=== PATIENT | male | born 1985 | race Asian ===

== ENCOUNTER 2022-07-08 09:20 | Inpatient (IN) | payer OTHER ==
[~2022-07-08] VITALS: Ht 170.2 cm; Wt 62.5 kg
[2022-07-08 10:01] LABS: Basophils # (auto) 0 10 ^3/uL (0-0.2); Basophils % (auto) 0.5 % (0.0-2.0); Eosinophils # (auto) 0 10 ^3/uL (0-0.8); Eosinophils % (auto) 0.5 % (0.0-7.0); Hematocrit 47.6 % (41.0-53.0); Hemoglobin 15.3 g/dL (13.5-17.5); Lymphocytes # (auto) 2.1 10 ^3/uL (0.4-5.4); Mean Corpuscular Hemoglobin 27.5 pg (28.0-32.0); Mean Corpuscular Hgb Conc. 32.1 g/dL (32.0-36.0); Mean Corpuscular Volume 85.5 fL (80.0-100.0); Monocytes # (auto) 0.7 10 ^3/uL (0-1.3); Monocytes % (auto) 13.9 % (0.0-12.0); Neutrophils % (auto) 41.1 % (37.0-80.0); Nucleated Red Blood Cells % 0.4 %; Red Blood Cells 5.57 10^6/uL (4.5-5.90); Red Cell Distribution Width 13.4 % (11.8-14.3); White Blood Cell 4.8 10^3/uL (4.4-10.8)
[2022-07-08 10:19] LABS: Calcium 8.2 mg/dL (8.5-10.1); Potassium 4.1 mmol/L (3.5-5.1)
[2022-07-08 10:23] LABS: BUN/Creatinine Ratio 13.1; Bilirubin, Total 0.5 mg/dL (0.2-1.0)
[2022-07-08 22:04] VITALS: BP 120/77
[2022-07-09 05:00] VITALS: BP 118/64
[2022-07-09 09:00] VITALS: BP 116/67
[2022-07-09] MEDS ORDERED: TUBERCULIN PPD 5 UNIT/0.1 ML ID ONE (11:30)
[2022-07-09 12:44] VITALS: BP 121/65
[2022-07-09 17:00] VITALS: BP 116/66
[2022-07-09 22:00] VITALS: BP 131/77
[2022-07-10 05:00] VITALS: BP 128/72
[2022-07-10 09:00] VITALS: BP 108/57
[2022-07-10 13:00] VITALS: BP 114/70
[2022-07-10 16:56] VITALS: BP 113/67
[2022-07-10 22:00] VITALS: BP 122/63
[2022-07-11 05:00] VITALS: BP 113/76
[2022-07-11 09:22] VITALS: BP 110/91
[2022-07-11] MEDS: ENOXAPARIN SOD 40 MG/0.4 ML SYRINGE SC SCH (11:22)
[2022-07-11 13:00] VITALS: BP 118/90
[2022-07-11 17:20] VITALS: BP 122/83
[2022-07-11 21:30] VITALS: BP 117/70
[2022-07-12 05:00] VITALS: BP 109/75
[2022-07-12 09:00] VITALS: BP 132/69
[2022-07-12] MEDS: ENOXAPARIN SOD 40 MG/0.4 ML SYRINGE SC SCH (09:58)
[2022-07-12 13:00] VITALS: BP 150/83
[2022-07-12 17:16] VITALS: BP 124/69
[2022-07-12 22:00] VITALS: BP 112/66
[2022-07-13 05:00] VITALS: BP 110/65
[2022-07-13 09:00] VITALS: BP 116/56
[2022-07-13] MEDS: ENOXAPARIN SOD 40 MG/0.4 ML SYRINGE SC SCH (10:36)
[2022-07-13 13:00] VITALS: BP 116/78
[2022-07-13 17:00] VITALS: BP 107/70
[2022-07-13 22:00] VITALS: BP 114/71
[2022-07-14 05:00] VITALS: BP 105/61
[2022-07-14] MEDS: ENOXAPARIN SOD 40 MG/0.4 ML SYRINGE SC SCH (08:07)
[2022-07-14 08:54] VITALS: BP 109/71
[2022-07-14 13:26] VITALS: BP 120/67
[2022-07-14 16:44] VITALS: BP 107/64
[2022-07-14 22:00] VITALS: BP 118/67
[2022-07-15 05:00] VITALS: BP 100/55
[2022-07-15 08:00] VITALS: BP 109/75
[2022-07-15] MEDS: ENOXAPARIN SOD 40 MG/0.4 ML SYRINGE SC SCH (08:43)
[2022-07-15 12:00] VITALS: BP 109/65
[2022-07-15 16:00] VITALS: BP 116/73
[2022-07-15 22:00] VITALS: BP 109/74
[2022-07-16 05:00] VITALS: BP 118/74
[2022-07-16 08:00] VITALS: BP 108/69
[2022-07-16 08:53] VITALS: BP 108/69
[2022-07-16] MEDS: ENOXAPARIN SOD 40 MG/0.4 ML SYRINGE SC SCH (09:44)
[2022-07-16 12:06] VITALS: BP 113/68
[2022-07-16 13:29] VITALS: BP 113/68
== END 2022-07-16 13:48 | DRG 179 ==
LOC: EDBD 09:20 → ER 09:20 → EEVIPCON 09:20 → OVERFLOW 14:10 → EAST 20:45
PROVIDERS: ADMIT Internal Medicine; ATTEND Internal Medicine
PROC: 3E0234Z Introduction of Serum, Toxoid and Vaccine into Muscle, Percutaneous Approach (ICD-10-PCS; principal; 2022-07-09)
DX: R76.11 Nonspecific reaction to tuberculin skin test without active tuberculosis (principal); Z20.1 Contact with and (suspected) exposure to tuberculosis; Z20.822 Contact with and (suspected) exposure to COVID-19; Z23 Encounter for immunization
CPT/HCPCS: 36415; 71046; 71275; 80053; 85025; 85379; 86703; 87070; 87205; 87426; G0378